=== PATIENT | female | born 1940 | race Asian ===

== ENCOUNTER 2021-02-08 12:52 | Inpatient (IN) | payer MEDICARE, MEDICAID ==
[~2021-02-08] VITALS: Ht 160 cm; Wt 89.8 kg
[2021-02-08 14:00] LABS: BASOPHILS % 0.9 % (0.0-2.0); EOSINOPHILS % 5.8 % (0.0-5.0); HEMATOCRIT. 33.1 % (36.0-48.0); HEMOGLOBIN. 10.7 g/dL (12.0-16.0); LYMPHOCYTES % 15.6 % (20.0-50.0); MEAN CORPUSCULAR HEMOGLOBIN 28.5 pg (28.0-32.0); MEAN CORPUSCULAR VOLUME 88.6 fL (81.0-99.0); MONOCYTES % 6.9 % (2.0-8.0); NEUTROPHILS % 70.8 % (40.0-76.0); PLATELET 217 x1000/uL (130-400); RED BLOOD CELL COUNT 3.74 mill/uL (4.2-5.4); RED CELL DISTRIBUTION WIDTH 15.9 % (11.6-14.6)
[2021-02-08 14:09] LABS: CHLORIDE 110 mEq/L (98-107)
[2021-02-08] MEDS ORDERED: FUROSEMIDE 40MG/4ML VIAL IV ONE (14:45)
[2021-02-08] MEDS ORDERED: ASPIRIN 81MG TABLET PO ONE (14:45)
[2021-02-09] VITALS (9 sets, daily range): BP systolic 129–179; BP diastolic 42–86
[2021-02-09] MEDS ORDERED: NON FORMULARY PATIENT HOME MED XX SCH ×2 (00:30)
[2021-02-09] MEDS ORDERED: DEXTROSE 50% WATER 50ML SYRINGE IV PRN (01:30)
[2021-02-09] MEDS ORDERED: LISI20TA31 PO (01:47)
[2021-02-09] MEDS ORDERED: ATOR20TA PO (01:47)
[2021-02-09] MEDS ORDERED: BISO10TA11 PO (01:47)
[2021-02-09] MEDS ORDERED: METF-415 MT (01:47)
[2021-02-09] MEDS ORDERED: INSU100I11 SQ (01:47)
[2021-02-09] MEDS ORDERED: ASPI-1406 PO (01:47)
[2021-02-09] MEDS ORDERED: AMLO5TAB4 PO (01:47)
[2021-02-09] MEDS: INSULIN LISPRO 100 UNITS/ML SUBCUT SCH ×4 (07:20→21:30)
[2021-02-09] MEDS: BLOOD SUGAR DIAGNOSTIC STRIP TEST SCH ×4 (07:20→21:21)
[2021-02-09] MEDS: AMLODIPINE 10MG TABLET PO SCH (07:21)
[2021-02-09] MEDS ORDERED: IPRATROPIUM/ALBUTEROL 0.5-3(2.5)MG/3ML NEB HHN PRN (08:45)
[2021-02-09] MEDS ORDERED: CLONIDINE 0.1MG TABLET PO SCH (08:45)
[2021-02-09] MEDS ORDERED: CLONIDINE 0.1MG TABLET PO PRN (08:45)
[2021-02-09] MEDS ORDERED: CARVEDILOL 6.25 MG TABLET PO SCH (09:00)
[2021-02-09] MEDS ORDERED: AMLODIPINE 5MG TABLET PO SCH (09:00)
[2021-02-09] MEDS ORDERED: FUROSEMIDE 40MG/4ML VIAL IVP SCH (09:00)
[2021-02-09] MEDS ORDERED: LISINOPRIL 20MG TABLET PO SCH ×2 (09:00)
[2021-02-09] MEDS ORDERED: BISOPROLOL FUMARATE 5 MG TABLET PO SCH (09:00)
[2021-02-09] MEDS ORDERED: METFORMIN HCL 850MG TABLET PO SCH (09:00)
[2021-02-09] MEDS: METFORMIN HCL 500MG TABLET PO SCH ×2 (09:06→17:11)
[2021-02-09] MEDS: ASPIRIN 81MG EC TABLET PO SCH (09:06)
[2021-02-09 09:26] LABS: BASOPHILS % 0.8 % (0.0-2.0); EOSINOPHILS % 8.2 % (0.0-5.0); HEMATOCRIT. 29.2 % (36.0-48.0); HEMOGLOBIN. 9.4 g/dL (12.0-16.0); LYMPHOCYTES % 20.1 % (20.0-50.0); MEAN CORPUSCULAR HEMOGLOBIN 28.5 pg (28.0-32.0); MEAN CORPUSCULAR VOLUME 87.9 fL (81.0-99.0); MONOCYTES % 7.1 % (2.0-8.0); NEUTROPHILS % 63.8 % (40.0-76.0); PLATELET 184 x1000/uL (130-400); RED BLOOD CELL COUNT 3.32 mill/uL (4.2-5.4); RED CELL DISTRIBUTION WIDTH 15.2 % (11.6-14.6)
[2021-02-09] MEDS: CARVEDILOL 12.5MG TABLET PO SCH ×2 (09:35→21:29)
[2021-02-09] MEDS: ENOXAPARIN 30MG/0.3ML SYR SUBCUT SCH (17:39)
[2021-02-09] MEDS: FUROSEMIDE 40MG/4ML VIAL IVP SCH (18:27)
[2021-02-09] MEDS: ATORVASTATIN CALCIUM 20MG TABLET PO SCH (21:29)
[2021-02-10] VITALS: BP 141/48
[2021-02-10 04:00] VITALS: BP 151/50
[2021-02-10] MEDS: BLOOD SUGAR DIAGNOSTIC STRIP TEST SCH ×4 (06:27→21:29)
[2021-02-10] MEDS: FUROSEMIDE 40MG/4ML VIAL IVP SCH ×2 (06:30→17:58)
[2021-02-10] MEDS: INSULIN LISPRO 100 UNITS/ML SUBCUT SCH ×4 (07:20→21:29)
[2021-02-10 08:00] VITALS: BP 142/51
[2021-02-10] MEDS: METFORMIN HCL 500MG TABLET PO SCH ×2 (08:59→18:04)
[2021-02-10] MEDS ORDERED: ENOXAPARIN 40MG/0.4ML SYR SUBCUT SCH (09:00)
[2021-02-10] MEDS: ASPIRIN 81MG EC TABLET PO SCH (09:00)
[2021-02-10] MEDS: LISINOPRIL 40MG TABLET PO SCH (09:00)
[2021-02-10] MEDS: CARVEDILOL 12.5MG TABLET PO SCH ×2 (09:00→21:25)
[2021-02-10 12:30] VITALS: BP 136/59
[2021-02-10] MEDS: SPIRONOLACTONE 25MG TABLET PO SCH (12:34)
[2021-02-10] MEDS: DIPHENHYDRAMINE 25MG CAPSULE PO PRN (12:35)
[2021-02-10] MEDS: AMLODIPINE 10MG TABLET PO SCH (12:35)
[2021-02-10 16:00] VITALS: BP 141/58
[2021-02-10] MEDS: ENOXAPARIN 30MG/0.3ML SYR SUBCUT SCH (17:58)
[2021-02-10 20:00] VITALS: BP 159/80
[2021-02-10] MEDS: ATORVASTATIN CALCIUM 20MG TABLET PO SCH (21:26)
[2021-02-11] VITALS (7 sets, daily range): BP systolic 136–159; BP diastolic 40–67
[2021-02-11] MEDS: FUROSEMIDE 40MG/4ML VIAL IVP SCH ×2 (06:02→16:14)
[2021-02-11] MEDS: BLOOD SUGAR DIAGNOSTIC STRIP TEST SCH ×4 (06:31→21:08)
[2021-02-11] MEDS: INSULIN LISPRO 100 UNITS/ML SUBCUT SCH ×4 (06:31→21:00)
[2021-02-11] MEDS: METFORMIN HCL 500MG TABLET PO SCH (08:19)
[2021-02-11] MEDS: CARVEDILOL 12.5MG TABLET PO SCH ×2 (08:19→21:07)
[2021-02-11] MEDS: ASPIRIN 81MG EC TABLET PO SCH (08:19)
[2021-02-11] MEDS: AMLODIPINE 10MG TABLET PO SCH (08:20)
[2021-02-11] MEDS: SPIRONOLACTONE 25MG TABLET PO SCH (08:20)
[2021-02-11] MEDS: LISINOPRIL 40MG TABLET PO SCH (08:20)
[2021-02-11] MEDS: HYDRALAZINE HCL 25MG TABLET PO SCH ×3 (09:18→22:00)
[2021-02-11] MEDS: ISOSORBIDE DINITRATE 10MG TABLET PO SCH ×3 (09:18→16:18)
[2021-02-11] MEDS: DIPHENHYDRAMINE 25MG CAPSULE PO PRN (12:53)
[2021-02-11] MEDS: ENOXAPARIN 30MG/0.3ML SYR SUBCUT SCH (16:14)
[2021-02-11] MEDS: ATORVASTATIN CALCIUM 20MG TABLET PO SCH (21:07)
[2021-02-12] VITALS: BP 154/49
[2021-02-12] MEDS: DIPHENHYDRAMINE 25MG CAPSULE PO PRN (00:17)
[2021-02-12 04:00] VITALS: BP 157/49
[2021-02-12] MEDS: BLOOD SUGAR DIAGNOSTIC STRIP TEST SCH ×4 (06:08→21:24)
[2021-02-12] MEDS: FUROSEMIDE 40MG/4ML VIAL IVP SCH ×2 (06:08→17:38)
[2021-02-12] MEDS: HYDRALAZINE HCL 25MG TABLET PO SCH ×3 (06:08→21:24)
[2021-02-12] MEDS: INSULIN LISPRO 100 UNITS/ML SUBCUT SCH ×4 (07:20→21:25)
[2021-02-12 08:00] VITALS: BP 175/52
[2021-02-12] MEDS: ASPIRIN 81MG EC TABLET PO SCH (08:45)
[2021-02-12] MEDS: SPIRONOLACTONE 25MG TABLET PO SCH (08:45)
[2021-02-12] MEDS: CARVEDILOL 12.5MG TABLET PO SCH ×2 (08:45→21:24)
[2021-02-12] MEDS: AMLODIPINE 10MG TABLET PO SCH (08:45)
[2021-02-12] MEDS: ISOSORBIDE DINITRATE 10MG TABLET PO SCH ×3 (08:45→17:38)
[2021-02-12 12:00] VITALS: BP 93/54
[2021-02-12] MEDS ORDERED: ZOLPIDEM TARTRATE 5MG TABLET PO PRN (12:30)
[2021-02-12] MEDS: ACETAMINOPHEN 325MG TABLET PO PRN (12:44)
[2021-02-12 16:00] VITALS: BP 150/51
[2021-02-12] MEDS: ENOXAPARIN 30MG/0.3ML SYR SUBCUT SCH (17:38)
[2021-02-12 20:00] VITALS: BP 144/47
[2021-02-12] MEDS: ATORVASTATIN CALCIUM 20MG TABLET PO SCH (21:24)
[2021-02-13] VITALS: BP 132/53
[2021-02-13 04:00] VITALS: BP 127/50
[2021-02-13] MEDS: HYDRALAZINE HCL 25MG TABLET PO SCH ×3 (06:19→21:55)
[2021-02-13] MEDS: BLOOD SUGAR DIAGNOSTIC STRIP TEST SCH ×4 (06:22→21:56)
[2021-02-13 08:00] VITALS: BP 159/60
[2021-02-13] MEDS: ASPIRIN 81MG EC TABLET PO SCH (08:41)
[2021-02-13] MEDS: ISOSORBIDE DINITRATE 10MG TABLET PO SCH ×3 (08:41→17:52)
[2021-02-13] MEDS: CARVEDILOL 12.5MG TABLET PO SCH ×2 (08:41→21:56)
[2021-02-13] MEDS: AMLODIPINE 10MG TABLET PO SCH (08:42)
[2021-02-13] MEDS: SPIRONOLACTONE 25MG TABLET PO SCH (08:42)
[2021-02-13] MEDS: INSULIN LISPRO 100 UNITS/ML SUBCUT SCH ×4 (08:46→21:58)
[2021-02-13] MEDS ORDERED: FUROSEMIDE 40MG TABLET PO SCH (09:00)
[2021-02-13 12:30] VITALS: BP 145/48
[2021-02-13 16:00] VITALS: BP 134/58
[2021-02-13] MEDS: ENOXAPARIN 30MG/0.3ML SYR SUBCUT SCH (17:49)
[2021-02-13 20:00] VITALS: BP 156/42
[2021-02-13] MEDS: ATORVASTATIN CALCIUM 20MG TABLET PO SCH (21:54)
[2021-02-13] MEDS: ACETAMINOPHEN 325MG TABLET PO PRN (21:55)
[2021-02-14] VITALS: BP 136/52
[2021-02-14 04:00] VITALS: BP 152/53
[2021-02-14] MEDS: HYDRALAZINE HCL 25MG TABLET PO SCH ×2 (06:06→15:24)
[2021-02-14 06:54] LABS: BASOPHILS % 0.5 % (0.0-2.0); EOSINOPHILS % 9.2 % (0.0-5.0); HEMATOCRIT. 29.6 % (36.0-48.0); HEMOGLOBIN. 9.7 g/dL (12.0-16.0); LYMPHOCYTES % 17.8 % (20.0-50.0); MEAN CORPUSCULAR HEMOGLOBIN 28.7 pg (28.0-32.0); MEAN CORPUSCULAR VOLUME 87.3 fL (81.0-99.0); MEAN PLATELET VOLUME 11.1 fl (7.4-10.4); MONOCYTES % 7.5 % (2.0-8.0); PLATELET 205 x1000/uL (130-400); RED BLOOD CELL COUNT 3.38 mill/uL (4.2-5.4); RED CELL DISTRIBUTION WIDTH 15.2 % (11.6-14.6)
[2021-02-14] MEDS: BLOOD SUGAR DIAGNOSTIC STRIP TEST SCH ×3 (07:02→17:20)
[2021-02-14 08:00] VITALS: BP 125/72
[2021-02-14 08:07] LABS: FOLIC ACID (FOLATE) SERUM >20 ng/mL ng/mL (>5.38)
[2021-02-14 08:18] LABS: VITAMIN B12 SERUM 362 pg/mL (211-911)
[2021-02-14] MEDS: ASPIRIN 81MG EC TABLET PO SCH (11:13)
[2021-02-14] MEDS: AMLODIPINE 10MG TABLET PO SCH (11:14)
[2021-02-14] MEDS: SPIRONOLACTONE 25MG TABLET PO SCH (11:14)
[2021-02-14] MEDS: CARVEDILOL 12.5MG TABLET PO SCH (11:15)
[2021-02-14] MEDS: ISOSORBIDE DINITRATE 10MG TABLET PO SCH ×3 (11:17→17:46)
[2021-02-14] MEDS: FUROSEMIDE 40MG TABLET PO SCH ×2 (11:20→17:46)
[2021-02-14] MEDS: INSULIN LISPRO 100 UNITS/ML SUBCUT SCH ×3 (11:26→17:20)
[2021-02-14] MEDS ORDERED: CYANOCOBALAMIN 1000MCG/ML VIAL IM SCH (12:30)
[2021-02-14 13:00] VITALS: BP 135/71
[2021-02-14] MEDS ORDERED: AMLO10TA80 PO (13:11)
[2021-02-14] MEDS ORDERED: METF500T PO (13:11)
[2021-02-14] MEDS ORDERED: LISI40TA13 PO (13:11)
[2021-02-14] MEDS ORDERED: ASPI-1406 PO (13:11)
[2021-02-14] MEDS ORDERED: ISOS10TA2 PO (13:11)
[2021-02-14] MEDS ORDERED: ATOR20TA PO (13:11)
[2021-02-14] MEDS ORDERED: FURO40TA5 PO (13:11)
[2021-02-14 16:00] VITALS: BP 130/74
[2021-02-14 16:36] VITALS: BP 130/72
[2021-02-14] MEDS: ENOXAPARIN 30MG/0.3ML SYR SUBCUT SCH (17:47)
[2021-02-14] MEDS ORDERED: ATORVASTATIN CALCIUM 20MG TABLET PO SCH (21:00)
== END 2021-02-14 19:00 | disposition home health service (06) | DRG 199 ==
LOC: ER 12:52 → 6WST 15:59 → EDBEDREQ 16:14 → EDBEDREQTM 16:14 → ENRESERV 21:43
PROVIDERS: ADMIT Internal Medicine; ATTEND Internal Medicine
DX: I16.1 Hypertensive emergency (principal); J96.01 Acute respiratory failure with hypoxia; I11.0 Hypertensive heart disease with heart failure; E11.40 Type 2 diabetes mellitus with diabetic neuropathy, unspecified; E44.1 Mild protein-calorie malnutrition; I50.31 Acute diastolic (congestive) heart failure; N17.9 Acute kidney failure, unspecified; E66.9 Obesity, unspecified; E87.8 Other disorders of electrolyte and fluid balance, not elsewhere classified; D64.9 Anemia, unspecified; F41.9 Anxiety disorder, unspecified; F17.200 Nicotine dependence, unspecified, uncomplicated; E78.5 Hyperlipidemia, unspecified; I25.10 Atherosclerotic heart disease of native coronary artery without angina pectoris; R53.81 Other malaise; R26.9 Unspecified abnormalities of gait and mobility; I87.2 Venous insufficiency (chronic) (peripheral); Z68.35 Body mass index [BMI] 35.0-35.9, adult; Z95.5 Presence of coronary angioplasty implant and graft
CPT/HCPCS: 36415; 71045; 80048; 80053; 80061; 82306; 82607; 82746; 82962; 83036; 83880; 84443; 84484; 85025; 93005; 93306; 93923; 93970; 97110; 97116; 97162; 97166; 97530; 97535; 99291; A6261; J1650; J1815; J1940; J3420; Q0163

== ENCOUNTER 2021-02-16 12:28 | Inpatient (IN) | payer MEDICARE, MEDICAID ==
[~2021-02-16] VITALS: Ht 162.6 cm; Wt 73.1 kg
[~2021-02-16 12:28] MED LIST: AMLO10TA80 PO; AMLO5TAB4 PO; ASPI-1406 PO; ATOR20TA PO; BISO10TA11 PO; FURO40TA5 PO; INSU100I11 SQ; ISOS10TA2 PO; LISI20TA31 PO; LISI40TA13 PO; METF-415 MT; METF500T PO
[2021-02-16] MEDS ORDERED: MECLIZINE 12.5MG TABLET PO ONE (13:00)
[2021-02-16 13:37] LABS: BASOPHILS % 0.8 % (0.0-2.0); EOSINOPHILS % 8.9 % (0.0-5.0); HEMATOCRIT. 35.4 % (36.0-48.0); HEMOGLOBIN. 11.2 g/dL (12.0-16.0); LYMPHOCYTES % 24.9 % (20.0-50.0); MEAN CORPUSCULAR HEMOGLOBIN 27.8 pg (28.0-32.0); NEUTROPHILS % 56.4 % (40.0-76.0); PLATELET 222 x1000/uL (130-400); RED BLOOD CELL COUNT 4.03 mill/uL (4.2-5.4); RED CELL DISTRIBUTION WIDTH 15.8 % (11.6-14.6)
[2021-02-16 13:47] LABS: CHLORIDE 101 mEq/L (98-107)
[2021-02-16] MEDS ORDERED: ASPIRIN 81MG TABLET PO NR (14:15)
[2021-02-16 14:47] LABS: INR 1.1; PROTHROMBIN TIME 11.4 sec (9.6-11.0)
[2021-02-16 16:00] VITALS: BP 169/45
[2021-02-16] MEDS ORDERED: ONDANSETRON HCL 4MG/2ML INJ IV PRN (16:45)
[2021-02-16] MEDS ORDERED: GUAIFENESIN 200MG/10ML SUGAR FREE UDC PO PRN (16:45)
[2021-02-16] MEDS ORDERED: MAGNESIUM/ALUMINUM HYDROXIDE/SIMETHICONE 30ML UDC PO PRN (16:45)
[2021-02-16] MEDS ORDERED: TRAMADOL 50MG TABLET PO PRN (16:45)
[2021-02-16] MEDS ORDERED: ACETAMINOPHEN 325MG TABLET PO PRN ×2 (16:45)
[2021-02-16] MEDS ORDERED: DEXTROSE 50% WATER 50ML SYRINGE IV PRN (16:45)
[2021-02-16] MEDS ORDERED: NITROGLYCERIN 0.4MG TABLET SL SL PRN (16:45)
[2021-02-16] MEDS ORDERED: CEFTRIAXONE 1 G PREMIX 50 ML IV SCH (16:45)
[2021-02-16] MEDS ORDERED: LEVOFLOXACIN 500MG PREMIX 100 ML IV NR (18:00)
[2021-02-16] MEDS: BLOOD SUGAR DIAGNOSTIC STRIP TEST SCH ×2 (18:00→21:05)
[2021-02-16] MEDS: INSULIN LISPRO 100 UNITS/ML SUBCUT SCH ×2 (18:22→21:07)
[2021-02-16] MEDS: SODIUM CHLORIDE 0.9% 1,000 ML IV SCH (18:23)
[2021-02-16] MEDS: ENOXAPARIN 40MG/0.4ML SYR SUBCUT SCH (18:26)
[2021-02-16 18:51] VITALS: BP 169/45
[2021-02-16 19:15] LABS: T4 FREE 1.17 ng/dL (0.76-1.46)
[2021-02-16 19:50] LABS: VITAMIN B12 SERUM > 2000.0 pg/mL (211-911)
[2021-02-16 20:00] VITALS: BP 168/58
[2021-02-16] MEDS ORDERED: ZOLPIDEM TARTRATE 5MG TABLET PO PRN (21:00)
[2021-02-16] MEDS: CLONIDINE 0.1MG TABLET PO PRN (21:05)
[2021-02-16] MEDS: ASCORBIC ACID 500 MG TABLET PO SCH (21:05)
[2021-02-16] MEDS: FAMOTIDINE 20MG TABLET PO SCH (21:05)
[2021-02-16] MEDS: CEFTRIAXONE 1,000 MG in DEXTROSE 5% WATER 50 ML IV SCH (21:26)
[2021-02-17] VITALS: BP 159/48
[2021-02-17 04:00] VITALS: BP 159/53
[2021-02-17] MEDS: SODIUM CHLORIDE 0.9% 1,000 ML IV SCH ×2 (04:45→21:15)
[2021-02-17] MEDS: BLOOD SUGAR DIAGNOSTIC STRIP TEST SCH ×4 (06:12→21:17)
[2021-02-17 06:13] LABS: BASOPHILS % 0.8 % (0.0-2.0); EOSINOPHILS % 8.8 % (0.0-5.0); HEMATOCRIT. 33.2 % (36.0-48.0); HEMOGLOBIN. 10.7 g/dL (12.0-16.0); LYMPHOCYTES % 34.8 % (20.0-50.0); MEAN CORPUSCULAR HEMOGLOBIN 28.1 pg (28.0-32.0); MEAN CORPUSCULAR VOLUME 87.2 fL (81.0-99.0); MEAN PLATELET VOLUME 10.5 fl (7.4-10.4); MONOCYTES % 10.8 % (2.0-8.0); NEUTROPHILS % 44.8 % (40.0-76.0); PLATELET 205 x1000/uL (130-400); RED CELL DISTRIBUTION WIDTH 15.4 % (11.6-14.6)
[2021-02-17 06:14] LABS: CHLORIDE 103 mEq/L (98-107)
[2021-02-17] MEDS ORDERED: INSU100I55 SQ (06:21)
[2021-02-17] MEDS: INSULIN LISPRO 100 UNITS/ML SUBCUT SCH ×4 (06:23→21:17)
[2021-02-17 06:31] LABS: LDL CHOLESTEROL 53 mg/dL (5-100)
[2021-02-17 06:33] LABS: CREATINE KINASE 40 IU/L (26-192); CREATINE KINASE MB FRACTION < 1.0 ng/mL (0.5-3.6); HDL CHOLESTEROL 43 mg/dL (40-59)
[2021-02-17 08:00] VITALS: BP 170/60
[2021-02-17] MEDS: CLONIDINE 0.1MG TABLET PO PRN (09:11)
[2021-02-17] MEDS: ASCORBIC ACID 500 MG TABLET PO SCH ×2 (09:12→21:16)
[2021-02-17] MEDS: ZINC SULFATE 220 MG ( 50 ) CAPSULE PO SCH (09:12)
[2021-02-17] MEDS: ASPIRIN 325MG EC TABLET PO SCH (09:12)
[2021-02-17 11:13] LABS: CLARITY URINE CLEAR (CLEAR); COLOR URINE YELLOW (YELLOW); KETONES URINE NEGATIVE (NEGATIVE); LEUKOCYTE ESTERASE URINE NEGATIVE (NEGATIVE); NITRITE URINE NEGATIVE (NEGATIVE); OCCULT BLOOD URINE NEGATIVE (NEGATIVE); PROTEIN URINE 2+ (NEGATIVE); SPECIFIC GRAVITY URINE 1.011 (1.005-1.030); UROBILINOGEN URINE 0.2 E.U./dL (0.2-1.0)
[2021-02-17 12:00] VITALS: BP 169/59
[2021-02-17] MEDS: LISINOPRIL 20MG TABLET PO SCH ×2 (14:58→21:19)
[2021-02-17 16:00] VITALS: BP 178/58
[2021-02-17] MEDS: CEFTRIAXONE 1,000 MG in DEXTROSE 5% WATER 50 ML IV SCH (17:02)
[2021-02-17] MEDS: LEVOFLOXACIN 250MG PREMIX 50 ML IV SCH (17:05)
[2021-02-17] MEDS: HYDRALAZINE HCL 50MG TABLET PO SCH ×2 (17:06→21:16)
[2021-02-17] MEDS: ENOXAPARIN 40MG/0.4ML SYR SUBCUT SCH (17:06)
[2021-02-17 20:00] VITALS: BP 150/65
[2021-02-17] MEDS: FAMOTIDINE 20MG TABLET PO SCH (21:16)
[2021-02-18] VITALS: BP 126/57
[2021-02-18 04:00] VITALS: BP 152/62
[2021-02-18] MEDS: BLOOD SUGAR DIAGNOSTIC STRIP TEST SCH ×4 (06:08→20:54)
[2021-02-18] MEDS: HYDRALAZINE HCL 50MG TABLET PO SCH ×3 (06:08→21:30)
[2021-02-18] MEDS: INSULIN LISPRO 100 UNITS/ML SUBCUT SCH ×4 (06:09→20:49)
[2021-02-18 08:00] VITALS: BP 176/82
[2021-02-18] MEDS: ASPIRIN 325MG EC TABLET PO SCH (08:49)
[2021-02-18] MEDS: ZINC SULFATE 220 MG ( 50 ) CAPSULE PO SCH (08:49)
[2021-02-18] MEDS: LISINOPRIL 20MG TABLET PO SCH ×2 (08:49→20:50)
[2021-02-18] MEDS: ASCORBIC ACID 500 MG TABLET PO SCH ×2 (08:49→20:49)
[2021-02-18] MEDS: SODIUM CHLORIDE 0.9% 1,000 ML IV SCH (08:51)
[2021-02-18 12:00] VITALS: BP 170/68
[2021-02-18] MEDS: CLONIDINE 0.1MG TABLET PO PRN ×2 (12:03→19:50)
[2021-02-18] MEDS: INSULIN GLARGINE UD 100 UNITS/ML SYR SUBCUT SCH (12:45)
[2021-02-18] MEDS: ENOXAPARIN 30MG/0.3ML SYR SUBCUT SCH (15:17)
[2021-02-18 16:00] VITALS: BP 159/57
[2021-02-18] MEDS: LEVOFLOXACIN 250MG PREMIX 50 ML IV SCH (17:39)
[2021-02-18] MEDS: CEFTRIAXONE 1,000 MG in DEXTROSE 5% WATER 50 ML IV SCH (17:39)
[2021-02-18 20:00] VITALS: BP 185/58
[2021-02-18] MEDS: FAMOTIDINE 20MG TABLET PO SCH (20:49)
[2021-02-19] VITALS: BP 145/58
[2021-02-19 04:00] VITALS: BP 150/53
[2021-02-19] MEDS: HYDRALAZINE HCL 50MG TABLET PO SCH ×3 (06:20→22:00)
[2021-02-19] MEDS: BLOOD SUGAR DIAGNOSTIC STRIP TEST SCH ×4 (06:20→20:38)
[2021-02-19] MEDS: INSULIN LISPRO 100 UNITS/ML SUBCUT SCH ×4 (06:21→20:57)
[2021-02-19 08:00] VITALS: BP 156/55
[2021-02-19] MEDS: ZINC SULFATE 220 MG ( 50 ) CAPSULE PO SCH (08:39)
[2021-02-19] MEDS: ENOXAPARIN 30MG/0.3ML SYR SUBCUT SCH (08:39)
[2021-02-19] MEDS: ASPIRIN 325MG EC TABLET PO SCH (08:39)
[2021-02-19] MEDS: ASCORBIC ACID 500 MG TABLET PO SCH ×2 (08:39→20:38)
[2021-02-19] MEDS: LISINOPRIL 20MG TABLET PO SCH ×2 (08:43→20:38)
[2021-02-19] MEDS: INSULIN GLARGINE UD 100 UNITS/ML SYR SUBCUT SCH (09:38)
[2021-02-19] MEDS: AMLODIPINE 10MG TABLET PO SCH (11:03)
[2021-02-19 12:00] VITALS: BP 183/73
[2021-02-19 16:00] VITALS: BP 157/53
[2021-02-19] MEDS: CEFTRIAXONE 1,000 MG in DEXTROSE 5% WATER 50 ML IV SCH (17:22)
[2021-02-19] MEDS ORDERED: LEVOFLOXACIN 250MG TABLET PO SCH (18:00)
[2021-02-19 20:00] VITALS: BP 124/43
[2021-02-19] MEDS: FAMOTIDINE 20MG TABLET PO SCH (20:38)
[2021-02-20] VITALS: BP 157/45
[2021-02-20 04:00] VITALS: BP 115/58
[2021-02-20 05:45] VITALS: BP 151/41
[2021-02-20] MEDS: HYDRALAZINE HCL 50MG TABLET PO SCH (05:51)
[2021-02-20] MEDS: BLOOD SUGAR DIAGNOSTIC STRIP TEST SCH (06:27)
[2021-02-20] MEDS: INSULIN LISPRO 100 UNITS/ML SUBCUT SCH (06:27)
[2021-02-20 08:00] VITALS: BP 160/60
[2021-02-20] MEDS: AMLODIPINE 10MG TABLET PO SCH (08:27)
[2021-02-20] MEDS: ASCORBIC ACID 500 MG TABLET PO SCH (08:27)
[2021-02-20] MEDS: LISINOPRIL 20MG TABLET PO SCH (08:27)
[2021-02-20] MEDS: ASPIRIN 325MG EC TABLET PO SCH (08:27)
[2021-02-20] MEDS: ZINC SULFATE 220 MG ( 50 ) CAPSULE PO SCH (08:27)
[2021-02-20] MEDS: ENOXAPARIN 30MG/0.3ML SYR SUBCUT SCH (08:28)
[2021-02-20 09:46] VITALS: BP 153/58
[2021-02-20] MEDS: INSULIN GLARGINE UD 100 UNITS/ML SYR SUBCUT SCH (09:59)
== END 2021-02-20 12:02 | disposition home health service (06) | DRG 720 ==
LOC: ER 12:28 → EDBEDREQSVC 14:14 → EDBEDREQ 14:14 → EDBEDREQTM 14:14 → 5WST 15:02 → EDBEDREQ 15:10 → EDBEDREQTM 15:10 → ENRESERV 15:25
PROVIDERS: ADMIT Internal Medicine; ATTEND Internal Medicine
DX: A41.9 Sepsis, unspecified organism (principal); N17.0 Acute kidney failure with tubular necrosis; E87.2 Acidosis; E44.1 Mild protein-calorie malnutrition; I11.0 Hypertensive heart disease with heart failure; I27.20 Pulmonary hypertension, unspecified; I50.32 Chronic diastolic (congestive) heart failure; R65.20 Severe sepsis without septic shock; R55 Syncope and collapse; D63.8 Anemia in other chronic diseases classified elsewhere; E11.9 Type 2 diabetes mellitus without complications; E78.00 Pure hypercholesterolemia, unspecified; F41.9 Anxiety disorder, unspecified; I36.1 Nonrheumatic tricuspid (valve) insufficiency; Z79.4 Long term (current) use of insulin; Z79.899 Other long term (current) drug therapy; Z82.49 Family history of ischemic heart disease and other diseases of the circulatory system; Z83.3 Family history of diabetes mellitus; Z68.27 Body mass index [BMI] 27.0-27.9, adult; N39.0 Urinary tract infection, site not specified
CPT/HCPCS: 36415; 71045; 80053; 80061; 81003; 82550; 82553; 82607; 82962; 83036; 83540; 83550; 83605; 83735; 83880; 84100; 84145; 84439; 84443; 84484; 85025; 93005; 93970; 97162; 97166; 99285; C1893; J0696; J1650; J1815; J1956; J7030; J7060; J8597